=== PATIENT | female | born 1985 | race Two or more races ===

== ENCOUNTER 2017-09-24 01:18 | Emergency (ER) | payer SELFPAY ==
[~2017-09-24] VITALS: Ht 162.6 cm; Wt 69.6 kg
[2017-09-24 01:37] LABS: HEMATOCRIT 35.3 % (36.0-46.0); HEMOGLOBIN 12.5 G/DL (11.9-15.5); MCH 30.9 PG (29.0-34.0); MCHC 35.4 G/DL (30.0-36.0); MCV 87.2 FL (83-99); PLATELET COUNT 272 K/uL (156-360); RBC DIS.WIDTH-CV 14.4 % (11.8-14.6); RBC DIS.WIDTH-SD 46.2 % (39-53); RED BLOOD COUNT 4.05 M/uL (3.80-5.20); WHITE BLOOD COUNT 11.8 K/uL (4.1-10.2)
[2017-09-24 03:46] LABS: APPEARANCE CLEAR ((CLEAR)); BILIRUBIN NEGATIVE; BLOOD NEGATIVE; COLOR YELLOW ((YELLOW)); GLUCOSE (STRIP) NEGATIVE; KETONES NEGATIVE; LEUKOCYTES NEGATIVE; NITRITE NEGATIVE; PROTEIN (STRIP) NEGATIVE; SPECIFIC GRAVITY 1.018 (1.000-1.030); UCUL ADDED? NO; UROBILINOGEN 0.2 MG/DL (0.2-1.0)
[2017-09-24 05:05] VITALS: BP 124/78
== END 2017-09-24 05:09 | disposition home or self-care (01) ==
LOC: EME 01:18
DX: O02.1 Missed abortion (principal)
CPT/HCPCS: 76801; 81003; 84702; 85027; 86900; 86901; 99281; 99285